=== PATIENT | male | born 2000 | race Hispanic/Latino ===

== ENCOUNTER 2023-09-03 00:50 | Emergency (ER) | payer SELFPAY ==
[2023-09-03] MEDS ORDERED: Ketorolac Tromethamine 30 MG (1 mL) VIAL ONE (01:35)
== END 2023-09-03 01:52 | disposition home or self-care (01) ==
LOC: CSHERS 00:50
DX: M54.6 Pain in thoracic spine (principal); M54.9 Dorsalgia, unspecified; R20.2 Paresthesia of skin
CPT/HCPCS: 96372; 99283; J1885

== ENCOUNTER 2023-09-14 10:53 | Emergency (ER) | payer SELFPAY | END 2023-09-14 11:42 | disposition home or self-care (01) | LOC: CSHERS 10:53 | DX: M54.50 Low back pain, unspecified (principal); M54.6 Pain in thoracic spine; M54.2 Cervicalgia; F17.290 Nicotine dependence, other tobacco product, uncomplicated | CPT/HCPCS: 99283 ==

== ENCOUNTER 2025-06-19 12:13 | Emergency (ER) | payer SELFPAY ==
[2025-06-19] MEDS ORDERED: Amoxicillin/Potassium Clav 875 MG TAB ONE (13:35)
== END 2025-06-19 14:29 | disposition home or self-care (01) ==
LOC: CSHERS 12:13
DX: J01.90 Acute sinusitis, unspecified (principal); F17.290 Nicotine dependence, other tobacco product, uncomplicated
CPT/HCPCS: 87081; 87428; 87430; 96372; 99283; J2919